=== PATIENT | female | born 1965 | race Caucasian/White ===

== ENCOUNTER 2018-03-25 07:56 | Day surgery (SDC) | payer BC ==
[~2018-03-25] VITALS: Ht 162.6 cm; Wt 82.7 kg
[2018-03-25 08:25] VITALS: BP 130/76; PULSE 70; TEMP 98.5
[2018-03-25] MEDS ORDERED: LEVOXYL0.125 MG PO (08:33)
[2018-03-25] MEDS ORDERED: PRINZIDE 12.5 M1 TA1 PO (08:34)
[2018-03-25] MEDS ORDERED: ESTRACE 1MG1 MG/TAB PO (08:34)
[2018-03-25] MEDS ORDERED: OSCAL 500 TAB500 MG PO (08:35)
[2018-03-25] MEDS ORDERED: VITAMIN D 1001000 IU PO (08:35)
[2018-03-25] MEDS ORDERED: IBU600 MG PO (11:39)
[2018-03-25] MEDS ORDERED: NORCO 325 MG-51 TAB PO (11:39)
[2018-03-25 12:15] VITALS: BP 110/69; PULSE 73; TEMP 98.3
[2018-03-25 12:30] VITALS: BP 115/65; PULSE 70
[2018-03-25 12:45] VITALS: BP 108/63; PULSE 64
[2018-03-25 13:00] VITALS: BP 103/65; PULSE 68
== END 2018-03-25 14:00 | disposition home or self-care (01) ==
LOC: SDCO 07:56
DX: A63.0 Anogenital (venereal) warts (principal); D28.0 Benign neoplasm of vulva
CPT/HCPCS: J1100; J1885; J2405; J2704; J3010; J7120